=== PATIENT | female | born 1955 | race Caucasian/White ===

== ENCOUNTER 2021-01-26 14:56 | Inpatient (IN) | payer BC ==
[~2021-01-26] VITALS: Ht 167.6 cm; Wt 49.4 kg
[2021-01-26 19:00] VITALS: BP 124/73
[2021-01-26] MEDS ORDERED: ACETAMINOPHEN 325 MG TABLET PO PRN (19:15)
[2021-01-26] MEDS: MELATONIN 5 MG TABLET PO PRN (20:28)
[2021-01-26] MEDS: -LIDODERM PATCH NOTE- MISC SCH (20:29)
[2021-01-26] MEDS: SENNA 187 MG TABLET PO SCH (20:29)
[2021-01-26] MEDS: PREGABALIN 50 MG CAPSULE PO SCH (20:29)
[2021-01-26] MEDS: ETHYL ALCOHOL 62% ANTISEPTIC NASAL INHALANT 0.6 ML AMPUL NASAL SCH (20:39)
[2021-01-26] MEDS: MORPHINE SULFATE 15 MG ER TABLET PO SCH (21:26)
[2021-01-26] MEDS ORDERED: NALOXONE HCL 0.4 MG/ML VIAL IM PRN (22:00)
[2021-01-26] MEDS: ACETAMINOPHEN 325 MG TABLET PO SCH (22:00)
[2021-01-27 01:37] VITALS: BP 116/76
[2021-01-27] MEDS: MORPHINE SULFATE 15 MG IR TABLET PO PRN ×2 (01:37→18:33)
[2021-01-27] MEDS: ACETAMINOPHEN 325 MG TABLET PO SCH ×3 (06:05→21:27)
[2021-01-27] MEDS: POLYETHYLENE GLYCOL 3350 17 GM PACKET PO SCH (08:04)
[2021-01-27] MEDS: DOCUSATE SODIUM 100 MG CAPSULE PO SCH (08:05)
[2021-01-27] MEDS: LIDOCAINE 5% TRANSDERMAL PATCH TD SCH (08:05)
[2021-01-27] MEDS: ETHYL ALCOHOL 62% ANTISEPTIC NASAL INHALANT 0.6 ML AMPUL NASAL SCH ×2 (08:06→21:23)
[2021-01-27] MEDS: MORPHINE SULFATE 15 MG ER TABLET PO SCH ×2 (08:06→21:26)
[2021-01-27] MEDS: PREGABALIN 50 MG CAPSULE PO SCH ×2 (08:07→21:26)
[2021-01-27] MEDS: DULoxetine HCL 30 MG CAPSULE PO SCH (08:09)
[2021-01-27] MEDS: NITROFURANTOIN/NITROFURAN MAC 100 MG CAPSULE [MACROBID] PO SCH ×2 (08:09→21:24)
[2021-01-27 08:10] VITALS: BP 129/79
[2021-01-27] MEDS: LUBIPROSTONE 24 MCG CAPSULE PO SCH ×2 (10:12→21:24)
[2021-01-27] MEDS: CALCIUM CARBONATE 500 MG TABLET PO SCH ×2 (10:13→21:25)
[2021-01-27] MEDS: ENOXAPARIN SODIUM 40 MG/0.4 ML PF SYRINGE SQ SCH (10:13)
[2021-01-27] MEDS: MAGNESIUM OXIDE 400 MG TABLET PO SCH (10:13)
[2021-01-27 10:14] LABS: BASOPHILS % (AUTO) 1.2 % (0.0-2.0); HEMATOCRIT 34.9 % (36-46); HEMOGLOBIN 11.8 g/dL (12.0-16.0); LYMPHOCYTES # (AUTO) 0.8 K/uL (1.0-4.8); LYMPHOCYTES % (AUTO) 17.7 % (22.0-44.0); MEAN CORPUSCULAR HEMOGLOBIN 33.8 pg (26.0-34.0); MEAN CORPUSCULAR HGB CONC 33.8 G/dL (31.0-37.0); MEAN CORPUSCULAR VOLUME 100 fL (80-100); MONOCYTES # (AUTO) 0.6 K/uL (0.1-1.0); NEUTROPHILS % (AUTO) 66.1 % (40.0-70.0); RED BLOOD CELL COUNT(AUTO) 3.48 MIL/uL (4.00-5.20); RED CELL DISTRIBUTION WIDTH 14.5 % (11.5-14.5)
[2021-01-27 10:45] LABS: ALANINE AMINOTRANSFERASE 53 U/L (12-78); ALBUMIN 3.6 g/dL (3.4-5.0); ALKALINE PHOSPHATASE 42 U/L (46-116); ANION GAP 9 mmol/L (8-16); ASPARTATE AMINOTRANSFERASE 66 U/L (15-37); BILIRUBIN,TOTAL 0.3 mg/dL (0.1-1.0); CALCIUM, TOTAL 8.9 mg/dL (8.8-10.5); CARBON DIOXIDE 27 mmol/L (22-29); CHLORIDE 100 mmol/L (98-107); CREATININE 0.51 mg/dL (0.60-1.30); GLOMERULAR FILTR. RATE CALC > 60 mL/min (>60); GLUCOSE,RANDOM 112 mg/dL (70-110); POTASSIUM 3.8 mmol/L (3.5-5.1); SODIUM SERUM 136 mmol/L (136-145); TOTAL PROTEIN, SERUM 7.2 g/dL (6.4-8.2); UREA NITROGEN, BLOOD 10 mg/dL (7-18)
[2021-01-27 11:36] LABS: PLATELET COUNT (AUTO) 329 K/uL (150-450)
[2021-01-27 16:00] VITALS: BP 134/79
[2021-01-27] MEDS: -LIDODERM PATCH NOTE- MISC SCH (21:23)
[2021-01-27] MEDS: SENNA 187 MG TABLET PO SCH (21:25)
[2021-01-27] MEDS ORDERED: ACETAMINOPHEN 325 MG TABLET PO SCH (22:00)
[2021-01-28] VITALS: BP 137/79
[2021-01-28] MEDS: MELATONIN 5 MG TABLET PO PRN ×2 (00:21→23:16)
[2021-01-28] MEDS: MORPHINE SULFATE 15 MG IR TABLET PO PRN ×2 (02:17→18:32)
[2021-01-28] MEDS: ACETAMINOPHEN 325 MG TABLET PO SCH ×3 (06:06→20:51)
[2021-01-28 08:00] VITALS: BP 131/74
[2021-01-28] MEDS: LUBIPROSTONE 24 MCG CAPSULE PO SCH ×2 (09:00→17:35)
[2021-01-28] MEDS ORDERED: MORPHINE SULFATE 15 MG ER TABLET PO SCH (09:00)
[2021-01-28] MEDS: ETHYL ALCOHOL 62% ANTISEPTIC NASAL INHALANT 0.6 ML AMPUL NASAL SCH ×2 (09:34→22:27)
[2021-01-28] MEDS: DULoxetine HCL 30 MG CAPSULE PO SCH (09:36)
[2021-01-28] MEDS: DOCUSATE SODIUM 100 MG CAPSULE PO SCH (09:36)
[2021-01-28] MEDS: NITROFURANTOIN/NITROFURAN MAC 100 MG CAPSULE [MACROBID] PO SCH ×2 (09:37→20:49)
[2021-01-28] MEDS: PREGABALIN 50 MG CAPSULE PO SCH ×2 (09:37→20:49)
[2021-01-28] MEDS: POLYETHYLENE GLYCOL 3350 17 GM PACKET PO SCH (09:38)
[2021-01-28] MEDS: MORPHINE SULFATE 15 MG ER TABLET PO SCH ×2 (09:38→20:49)
[2021-01-28] MEDS: MAGNESIUM OXIDE 400 MG TABLET PO SCH (09:38)
[2021-01-28] MEDS: LIDOCAINE 5% TRANSDERMAL PATCH TD SCH (09:39)
[2021-01-28] MEDS: CALCIUM CARBONATE 500 MG TABLET PO SCH ×2 (09:39→20:49)
[2021-01-28] MEDS: ENOXAPARIN SODIUM 40 MG/0.4 ML PF SYRINGE SQ SCH (09:39)
[2021-01-28 16:07] VITALS: BP 116/67
[2021-01-28] MEDS: SENNA 187 MG TABLET PO SCH (20:49)
[2021-01-28] MEDS: -LIDODERM PATCH NOTE- MISC SCH (22:27)
[2021-01-29] VITALS: BP 135/70
[2021-01-29] MEDS: ACETAMINOPHEN 325 MG TABLET PO SCH ×3 (06:13→20:34)
[2021-01-29] MEDS: LIDOCAINE 5% TRANSDERMAL PATCH TD SCH (08:28)
[2021-01-29] MEDS: DOCUSATE SODIUM 100 MG CAPSULE PO SCH (08:28)
[2021-01-29] MEDS: POLYETHYLENE GLYCOL 3350 17 GM PACKET PO SCH (08:28)
[2021-01-29] MEDS: MORPHINE SULFATE 15 MG ER TABLET PO SCH ×2 (08:28→20:31)
[2021-01-29] MEDS: MAGNESIUM OXIDE 400 MG TABLET PO SCH (08:29)
[2021-01-29] MEDS: PREGABALIN 50 MG CAPSULE PO SCH ×2 (08:29→20:30)
[2021-01-29] MEDS: NITROFURANTOIN/NITROFURAN MAC 100 MG CAPSULE [MACROBID] PO SCH ×2 (08:29→20:31)
[2021-01-29] MEDS: LUBIPROSTONE 24 MCG CAPSULE PO SCH ×2 (08:29→18:11)
[2021-01-29] MEDS: DULoxetine HCL 30 MG CAPSULE PO SCH (08:29)
[2021-01-29] MEDS: ETHYL ALCOHOL 62% ANTISEPTIC NASAL INHALANT 0.6 ML AMPUL NASAL SCH ×2 (08:29→20:31)
[2021-01-29] MEDS: ENOXAPARIN SODIUM 40 MG/0.4 ML PF SYRINGE SQ SCH (08:29)
[2021-01-29] MEDS: CALCIUM CARBONATE 500 MG TABLET PO SCH ×2 (08:29→20:31)
[2021-01-29 09:00] VITALS: BP 129/73
[2021-01-29] MEDS: MORPHINE SULFATE 15 MG IR TABLET PO PRN ×2 (10:31→22:13)
[2021-01-29 16:00] VITALS: BP 130/74
[2021-01-29] MEDS: SENNA 187 MG TABLET PO SCH (20:30)
[2021-01-29] MEDS: MELATONIN 5 MG TABLET PO PRN (20:31)
[2021-01-29] MEDS: -LIDODERM PATCH NOTE- MISC SCH (20:34)
[2021-01-30 02:24] VITALS: BP 146/79
[2021-01-30] MEDS: ACETAMINOPHEN 325 MG TABLET PO SCH ×3 (05:54→21:47)
[2021-01-30 08:02] VITALS: BP 111/70
[2021-01-30] MEDS: MORPHINE SULFATE 15 MG ER TABLET PO SCH ×2 (08:57→21:47)
[2021-01-30] MEDS: MAGNESIUM OXIDE 400 MG TABLET PO SCH (08:57)
[2021-01-30] MEDS: PREGABALIN 50 MG CAPSULE PO SCH ×2 (08:57→21:47)
[2021-01-30] MEDS: DULoxetine HCL 30 MG CAPSULE PO SCH (08:58)
[2021-01-30] MEDS: DOCUSATE SODIUM 100 MG CAPSULE PO SCH (08:58)
[2021-01-30] MEDS: LUBIPROSTONE 24 MCG CAPSULE PO SCH ×2 (08:58→17:42)
[2021-01-30] MEDS: LIDOCAINE 5% TRANSDERMAL PATCH TD SCH (08:59)
[2021-01-30] MEDS: CALCIUM CARBONATE 500 MG TABLET PO SCH ×2 (08:59→21:47)
[2021-01-30] MEDS: ENOXAPARIN SODIUM 40 MG/0.4 ML PF SYRINGE SQ SCH (08:59)
[2021-01-30] MEDS: POLYETHYLENE GLYCOL 3350 17 GM PACKET PO SCH (09:00)
[2021-01-30] MEDS: ETHYL ALCOHOL 62% ANTISEPTIC NASAL INHALANT 0.6 ML AMPUL NASAL SCH ×2 (09:14→21:48)
[2021-01-30] MEDS: MORPHINE SULFATE 15 MG IR TABLET PO PRN ×2 (13:11→20:06)
[2021-01-30 15:28] VITALS: BP 125/71
[2021-01-30] MEDS: SENNA 187 MG TABLET PO SCH ×2 (21:00→21:48)
[2021-01-30] MEDS: -LIDODERM PATCH NOTE- MISC SCH (21:48)
[2021-01-31 01:05] VITALS: BP 142/67
[2021-01-31] MEDS: ACETAMINOPHEN 325 MG TABLET PO SCH ×3 (06:23→20:10)
[2021-01-31] MEDS: PREGABALIN 50 MG CAPSULE PO SCH ×2 (08:30→20:09)
[2021-01-31] MEDS: ENOXAPARIN SODIUM 40 MG/0.4 ML PF SYRINGE SQ SCH (08:30)
[2021-01-31] MEDS: LIDOCAINE 5% TRANSDERMAL PATCH TD SCH (08:30)
[2021-01-31] MEDS: CALCIUM CARBONATE 500 MG TABLET PO SCH ×2 (08:30→20:09)
[2021-01-31] MEDS: POLYETHYLENE GLYCOL 3350 17 GM PACKET PO SCH (08:30)
[2021-01-31] MEDS: LUBIPROSTONE 24 MCG CAPSULE PO SCH ×2 (08:31→18:06)
[2021-01-31] MEDS: DOCUSATE SODIUM 100 MG CAPSULE PO SCH (08:31)
[2021-01-31] MEDS: MORPHINE SULFATE 15 MG IR TABLET PO PRN ×3 (08:31→22:02)
[2021-01-31] MEDS: MAGNESIUM OXIDE 400 MG TABLET PO SCH (08:31)
[2021-01-31] MEDS: DULoxetine HCL 30 MG CAPSULE PO SCH (08:31)
[2021-01-31 09:00] VITALS: BP 137/71
[2021-01-31] MEDS: ETHYL ALCOHOL 62% ANTISEPTIC NASAL INHALANT 0.6 ML AMPUL NASAL SCH ×2 (09:57→20:08)
[2021-01-31] MEDS: MORPHINE SULFATE 15 MG ER TABLET PO SCH ×2 (09:58→20:09)
[2021-01-31 17:00] VITALS: BP 135/71
[2021-01-31] MEDS: SENNA 187 MG TABLET PO SCH (20:09)
[2021-01-31] MEDS: -LIDODERM PATCH NOTE- MISC SCH (20:10)
[2021-01-31 20:42] LABS: APPEARANCE,URINE CLEAR (CLEAR); BILIRUBIN,URINE NEGATIVE (NEGATIVE); GLUCOSE, URINE (UA) NEGATIVE (NEGATIVE); KETONES,URINE 15 mg/dL (NEGATIVE); LEUKOCYTE ESTERASE ,URINE NEGATIVE (NEGATIVE); NITRATE,URINE NEGATIVE (NEGATIVE); OCCULT BLOOD,URINE NEGATIVE (NEGATIVE); PH,URINE 6.5 (5.0-8.0); PROTEIN,URINE NEGATIVE (NEGATIVE); UROBILINOGEN,URINE 0.2 mg/dL (<=1.0)
[2021-01-31 20:50] LABS: BACTERIA,URINE Rare /HPF (None Seen); RBC,URINE 0-2 /HPF (0-2); SQUAMOUS EPITHELIAL CELL,UR Few /LPF (None Seen); WBC,URINE 0-2 /HPF (0-5)
[2021-02-01 01:00] VITALS: BP 123/74
[2021-02-01] MEDS: ACETAMINOPHEN 325 MG TABLET PO SCH ×3 (05:34→20:59)
[2021-02-01 09:00] VITALS: BP 125/75
[2021-02-01] MEDS: POLYETHYLENE GLYCOL 3350 17 GM PACKET PO SCH (09:00)
[2021-02-01] MEDS: ENOXAPARIN SODIUM 40 MG/0.4 ML PF SYRINGE SQ SCH (09:29)
[2021-02-01] MEDS: ETHYL ALCOHOL 62% ANTISEPTIC NASAL INHALANT 0.6 ML AMPUL NASAL SCH ×2 (09:29→20:48)
[2021-02-01] MEDS: LUBIPROSTONE 24 MCG CAPSULE PO SCH ×2 (09:29→17:00)
[2021-02-01] MEDS: MAGNESIUM OXIDE 400 MG TABLET PO SCH (09:30)
[2021-02-01] MEDS: DOCUSATE SODIUM 100 MG CAPSULE PO SCH (09:30)
[2021-02-01] MEDS: PREGABALIN 50 MG CAPSULE PO SCH ×2 (09:30→20:50)
[2021-02-01] MEDS: DULoxetine HCL 30 MG CAPSULE PO SCH (09:30)
[2021-02-01] MEDS: MORPHINE SULFATE 15 MG ER TABLET PO SCH ×2 (09:30→20:52)
[2021-02-01] MEDS: CALCIUM CARBONATE 500 MG TABLET PO SCH ×2 (09:30→20:51)
[2021-02-01] MEDS: LIDOCAINE 5% TRANSDERMAL PATCH TD SCH (09:31)
[2021-02-01] MEDS: MORPHINE SULFATE 15 MG IR TABLET PO PRN ×2 (11:42→22:03)
[2021-02-01 16:49] VITALS: BP 133/65
[2021-02-01] MEDS: SENNA 187 MG TABLET PO SCH (20:52)
[2021-02-01] MEDS: -LIDODERM PATCH NOTE- MISC SCH (20:56)
[2021-02-02 00:30] VITALS: BP 142/85
[2021-02-02] MEDS: ACETAMINOPHEN 325 MG TABLET PO SCH ×3 (06:20→21:44)
[2021-02-02 08:03] VITALS: BP 116/78
[2021-02-02] MEDS: MORPHINE SULFATE 15 MG ER TABLET PO SCH ×2 (08:34→21:44)
[2021-02-02] MEDS: ENOXAPARIN SODIUM 40 MG/0.4 ML PF SYRINGE SQ SCH (08:34)
[2021-02-02] MEDS: PREGABALIN 50 MG CAPSULE PO SCH ×2 (08:35→21:44)
[2021-02-02] MEDS: LUBIPROSTONE 24 MCG CAPSULE PO SCH ×2 (08:35→17:03)
[2021-02-02] MEDS: DOCUSATE SODIUM 100 MG CAPSULE PO SCH (08:35)
[2021-02-02] MEDS: MAGNESIUM OXIDE 400 MG TABLET PO SCH (08:35)
[2021-02-02] MEDS: DULoxetine HCL 30 MG CAPSULE PO SCH (08:35)
[2021-02-02] MEDS: CALCIUM CARBONATE 500 MG TABLET PO SCH ×2 (08:35→21:44)
[2021-02-02] MEDS: ETHYL ALCOHOL 62% ANTISEPTIC NASAL INHALANT 0.6 ML AMPUL NASAL SCH ×2 (08:35→21:44)
[2021-02-02] MEDS: POLYETHYLENE GLYCOL 3350 17 GM PACKET PO SCH (08:35)
[2021-02-02] MEDS: LIDOCAINE 5% TRANSDERMAL PATCH TD SCH (08:43)
[2021-02-02] MEDS: MORPHINE SULFATE 15 MG IR TABLET PO PRN ×2 (10:26→19:20)
[2021-02-02 18:27] VITALS: BP 128/80
[2021-02-02] MEDS: -LIDODERM PATCH NOTE- MISC SCH (21:44)
[2021-02-02] MEDS: SENNA 187 MG TABLET PO SCH (21:44)
[2021-02-03 00:30] VITALS: BP 127/71
[2021-02-03] MEDS: ACETAMINOPHEN 325 MG TABLET PO SCH ×3 (05:51→20:46)
[2021-02-03 08:20] VITALS: BP 136/69
[2021-02-03] MEDS: ENOXAPARIN SODIUM 40 MG/0.4 ML PF SYRINGE SQ SCH (09:21)
[2021-02-03] MEDS: LIDOCAINE 5% TRANSDERMAL PATCH TD SCH (09:21)
[2021-02-03] MEDS: DOCUSATE SODIUM 100 MG CAPSULE PO SCH (09:22)
[2021-02-03] MEDS: MAGNESIUM OXIDE 400 MG TABLET PO SCH (09:22)
[2021-02-03] MEDS: ETHYL ALCOHOL 62% ANTISEPTIC NASAL INHALANT 0.6 ML AMPUL NASAL SCH ×2 (09:22→20:30)
[2021-02-03] MEDS: LUBIPROSTONE 24 MCG CAPSULE PO SCH ×2 (09:22→16:47)
[2021-02-03] MEDS: CALCIUM CARBONATE 500 MG TABLET PO SCH ×2 (09:22→20:29)
[2021-02-03] MEDS: PREGABALIN 50 MG CAPSULE PO SCH ×2 (09:22→20:29)
[2021-02-03] MEDS: DULoxetine HCL 30 MG CAPSULE PO SCH (09:23)
[2021-02-03] MEDS: POLYETHYLENE GLYCOL 3350 17 GM PACKET PO SCH (09:24)
[2021-02-03] MEDS: MORPHINE SULFATE 15 MG ER TABLET PO SCH ×2 (09:24→20:30)
[2021-02-03] MEDS: MORPHINE SULFATE 15 MG IR TABLET PO PRN ×2 (11:53→22:15)
[2021-02-03 17:19] VITALS: BP 139/60
[2021-02-03] MEDS: -LIDODERM PATCH NOTE- MISC SCH (20:20)
[2021-02-03] MEDS: SENNA 187 MG TABLET PO SCH (20:29)
[2021-02-03] MEDS: MELATONIN 5 MG TABLET PO PRN (20:41)
[2021-02-04 03:37] VITALS: BP 127/73
[2021-02-04] MEDS: ACETAMINOPHEN 325 MG TABLET PO SCH ×3 (06:05→19:57)
[2021-02-04 08:02] VITALS: BP 124/74
[2021-02-04] MEDS: LUBIPROSTONE 24 MCG CAPSULE PO SCH ×2 (08:44→17:46)
[2021-02-04] MEDS: MORPHINE SULFATE 15 MG ER TABLET PO SCH ×2 (08:44→19:56)
[2021-02-04] MEDS: DOCUSATE SODIUM 100 MG CAPSULE PO SCH (08:45)
[2021-02-04] MEDS: MAGNESIUM OXIDE 400 MG TABLET PO SCH (08:45)
[2021-02-04] MEDS: DULoxetine HCL 30 MG CAPSULE PO SCH (08:46)
[2021-02-04] MEDS: CALCIUM CARBONATE 500 MG TABLET PO SCH ×2 (08:46→19:57)
[2021-02-04] MEDS: POLYETHYLENE GLYCOL 3350 17 GM PACKET PO SCH ×2 (08:46→19:56)
[2021-02-04] MEDS: ENOXAPARIN SODIUM 40 MG/0.4 ML PF SYRINGE SQ SCH (08:46)
[2021-02-04] MEDS: LIDOCAINE 5% TRANSDERMAL PATCH TD SCH (08:46)
[2021-02-04] MEDS: PREGABALIN 50 MG CAPSULE PO SCH ×2 (08:46→19:56)
[2021-02-04] MEDS: ETHYL ALCOHOL 62% ANTISEPTIC NASAL INHALANT 0.6 ML AMPUL NASAL SCH ×2 (08:47→19:56)
[2021-02-04] MEDS: MORPHINE SULFATE 15 MG IR TABLET PO PRN (11:39)
[2021-02-04 16:06] VITALS: BP 134/70
[2021-02-04] MEDS: SENNA 187 MG TABLET PO SCH (19:56)
[2021-02-04] MEDS: MELATONIN 5 MG TABLET PO PRN (19:56)
[2021-02-04] MEDS: -LIDODERM PATCH NOTE- MISC SCH (19:56)
[2021-02-05 00:22] VITALS: BP 143/83
[2021-02-05] MEDS ORDERED: LUBI24CA2 PO (01:11)
[2021-02-05] MEDS ORDERED: SENN8.6T90 PO (01:11)
[2021-02-05] MEDS ORDERED: MORP15T PO (01:11)
[2021-02-05] MEDS ORDERED: ACET-2247 PO (01:11)
[2021-02-05] MEDS ORDERED: DOCU-270 PO (01:11)
[2021-02-05] MEDS ORDERED: LIDO700A15 TP (01:11)
[2021-02-05] MEDS ORDERED: PREG50 PO (01:11)
[2021-02-05] MEDS ORDERED: DULO30CA89 PO (01:11)
[2021-02-05] MEDS ORDERED: MELA5TAB3 PO (01:11)
[2021-02-05] MEDS ORDERED: OS500 PO (01:11)
[2021-02-05] MEDS ORDERED: MORP15TA43 PO (01:11)
[2021-02-05] MEDS ORDERED: MAGN400T7 PO (01:11)
[2021-02-05] MEDS ORDERED: POLY17PO47 PO (01:11)
[2021-02-05] MEDS: ACETAMINOPHEN 325 MG TABLET PO SCH ×3 (05:25→20:49)
[2021-02-05] MEDS: LIDOCAINE 5% TRANSDERMAL PATCH TD SCH (07:44)
[2021-02-05] MEDS: POLYETHYLENE GLYCOL 3350 17 GM PACKET PO SCH ×2 (07:44→20:49)
[2021-02-05] MEDS: ETHYL ALCOHOL 62% ANTISEPTIC NASAL INHALANT 0.6 ML AMPUL NASAL SCH ×2 (07:44→20:49)
[2021-02-05] MEDS: PREGABALIN 50 MG CAPSULE PO SCH ×2 (07:45→20:49)
[2021-02-05] MEDS: DULoxetine HCL 30 MG CAPSULE PO SCH (07:45)
[2021-02-05] MEDS: ENOXAPARIN SODIUM 40 MG/0.4 ML PF SYRINGE SQ SCH (07:45)
[2021-02-05] MEDS: CALCIUM CARBONATE 500 MG TABLET PO SCH ×2 (07:45→20:49)
[2021-02-05] MEDS: LUBIPROSTONE 24 MCG CAPSULE PO SCH ×2 (07:45→17:38)
[2021-02-05] MEDS: MAGNESIUM OXIDE 400 MG TABLET PO SCH (07:45)
[2021-02-05] MEDS: DOCUSATE SODIUM 100 MG CAPSULE PO SCH (07:46)
[2021-02-05] MEDS: MORPHINE SULFATE 15 MG IR TABLET PO PRN ×3 (07:47→16:17)
[2021-02-05] MEDS: MORPHINE SULFATE 15 MG ER TABLET PO SCH ×2 (08:06→20:50)
[2021-02-05 10:48] VITALS: BP 132/74
[2021-02-05 16:17] VITALS: BP 127/70
[2021-02-05] MEDS: MELATONIN 5 MG TABLET PO PRN (20:50)
[2021-02-05] MEDS: SENNA 187 MG TABLET PO SCH (20:50)
[2021-02-05] MEDS: -LIDODERM PATCH NOTE- MISC SCH (20:59)
[2021-02-06 01:00] VITALS: BP 121/66
[2021-02-06] MEDS: ACETAMINOPHEN 325 MG TABLET PO SCH (06:09)
[2021-02-06] MEDS: MAGNESIUM OXIDE 400 MG TABLET PO SCH (08:30)
[2021-02-06] MEDS: CALCIUM CARBONATE 500 MG TABLET PO SCH (08:30)
[2021-02-06] MEDS: LIDOCAINE 5% TRANSDERMAL PATCH TD SCH (08:30)
[2021-02-06] MEDS: LUBIPROSTONE 24 MCG CAPSULE PO SCH (08:30)
[2021-02-06] MEDS: DOCUSATE SODIUM 100 MG CAPSULE PO SCH (08:30)
[2021-02-06] MEDS: MORPHINE SULFATE 15 MG ER TABLET PO SCH (08:31)
[2021-02-06] MEDS: POLYETHYLENE GLYCOL 3350 17 GM PACKET PO SCH (08:31)
[2021-02-06] MEDS: DULoxetine HCL 30 MG CAPSULE PO SCH (08:31)
[2021-02-06] MEDS: ENOXAPARIN SODIUM 40 MG/0.4 ML PF SYRINGE SQ SCH ×2 (08:33→08:49)
[2021-02-06] MEDS: PREGABALIN 50 MG CAPSULE PO SCH (08:33)
[2021-02-06] MEDS: ETHYL ALCOHOL 62% ANTISEPTIC NASAL INHALANT 0.6 ML AMPUL NASAL SCH (09:00)
[2021-02-06 10:33] VITALS: BP 137/71
== END 2021-02-06 11:00 | disposition home or self-care (01) | DRG 551 ==
LOC: 2WR 18:05
PROVIDERS: ADMIT Physical Medicine & Rehabilitation; ATTEND Physical Medicine & Rehabilitation
DX: M54.16 Radiculopathy, lumbar region (principal); G03.9 Meningitis, unspecified; G83.4 Cauda equina syndrome; F11.20 Opioid dependence, uncomplicated; N39.0 Urinary tract infection, site not specified; K59.09 Other constipation; F41.9 Anxiety disorder, unspecified; Z85.41 Personal history of malignant neoplasm of cervix uteri; M54.9 Dorsalgia, unspecified
CPT/HCPCS: 80053; 81001; 85025; 87081; 93970; 97110; 97112; 97116; 97150; 97161; 97163; 97166; 97530; 97535; 99366; A9575; J1650